=== PATIENT | female | born 1935 | race African-American/Black ===

== ENCOUNTER 2018-04-18 18:35 | Inpatient (IN) | payer MEDICARE ==
[~2018-04-18] VITALS: Ht 170.2 cm; Wt 81.6 kg
--- NOTE | ~2018-04-18 | CN ---
PATIENT NAME:BHAVESH TAPIA MEDICAL RECORD: [id number] : 35 LOCATION:D. D.2107 ADMIT DATE: 04/19/18 ACCOUNT: [id number] CONSULTING PHYSICIAN: JOSE SARAVIA MD REFERRING PHYSICIAN: BELTRAN GARCIA MD DATE OF CONSULTATION: 04/22/2018 ADMITTING DIAGNOSES: 1. Pulmonary embolus. 2. Hypertension. 3. Pulmonary hypertension. 4. Alzheimer's dementia. 5. Peripheral vascular disease. 6. Diabetes. 7. Systemic hypertension. 8. Shortness of breath, dyspnea on exertion. HISTORY OF PRESENT ILLNESS: Mrs. Tapia is an 82-year-old senior care patient who was sent here for shortness of breath, dyspnea on exertion. She had a CAT scan that suggested a pulmonary embolus along with a right atrial thrombus. She has since had an echocardiogram. The echocardiogram was with excellent images as she is quite thin. There is no evidence of right atrial thrombus at the time of the echocardiogram, which was yesterday. She did have what appeared to be right heart enlargement, right heart strain, and pulmonary hypertension with systolic blood pressures in the 60 range pulmonary salvador. PHYSICAL EXAMINATION: GENERAL APPEARANCE: Well-nourished, well-developed, appears stated age. Level of distress, comfortable. PSYCHIATRIC: Mental status, alert, normal affect. Orientation, oriented to time, place and person. EYES: Lids and conjunctiva, noninjected. No discharge, no pallor. ENT: Lips, teeth, gums, normal dentition. Oropharynx, no cyanosis, no pallor. NECK: Carotid arteries, bilateral normal upstroke, no bruits, no thrills. JUGULAR VEINS: No jugular venous pressure or distention. CERVICAL LYMPH NODES: Nontender, nonenlarged. THYROID: Not enlarged. Nontender. No nodules. LUNGS: Respiratory effort, unlabored. CHEST: Normal curvature. No thoracic deformity. No chest wall tenderness. Percussion, resonant. Auscultation, clear. No wheezes, no rales, no rhonchi. CARDIOVASCULAR: Precordial exam, nondisplaced. No heaves or pericardial thrills. Rate and rhythm, regular. Heart sounds, normal S1, normal S2. No S3, no gallop, no rub. Systolic murmur, not heard. Diastolic murmur, not heard. EXTREMITIES: No cyanosis, no edema. Peripheral pulses, full and equal in all extremities, except as noted. No bruits appreciated. ABDOMEN: Soft, nondistended. Normal aorta. No bruit. Nontender. No masses. Liver, nontender, no hepatomegaly. Spleen, nontender, no splenomegaly. MUSCULOSKELETAL: No joint tenderness. No joint swelling. No erythema. NEUROLOGICAL: Normal gait, normal strength, normal tone. SKIN: Warm and dry. OVERALL IMPRESSION: Right atrial thrombus on CT scan. However, yesterday, echocardiogram showed no further right atrial thrombus. If it was a right atrial thrombus present and this was not artifactual, it has since gone on to become a pulmonary embolus. It would not change the therapy at this time and CONSULT REPORT [id number] BHAVESH TAPIA she is being anticoagulated for this. At this time, no other cardiac workup is necessary. TRANSINT:[id number] Voice Confirmation ID: [id number] DOCUMENT ID: [id number] JOSE SARAVIA MD at 0923 CC: [id number] DICTATION DATE: 04/22/18 1033 SOFTWARE TOOLS DEVELOPER: 04/22/18 1149 DIS IN 04/25/18 [facility] [address] [place] [address]
--- NOTE | ~2018-04-18 | EC ---
PATIENT:BHAVESH HANNAH DATE OF SERVICE: 04/19/18 SEX: F MEDICAL RECORD: [id number] DATE OF : 35 LOCATION:D.M2 D.210 AGE OF PATIENT: 82 ADMISSION DATE: 04/19/18 REFERRING PHYSICIAN: INTERPRETING PHYSICIAN: ARMAAN FOY MD ECHOCARDIOGRAM REPORT ECHO CHARGES 4 ECHO COMPLETE Date: 04/20/18 CLINICAL DIAGNOSIS: CHF ECHOCARDIOGRAPHIC MEASUREMENTS (adult normal given) AC root (d.<3.7cm) 3.0 cm LV Septum d (<1.2 cm> 1.9 cm Valve Excursion 1.2 cm LV Septum (systole) 1.9 cm Left Atria (s.<4.0cm> 3.6 cm LVPW d(<1.2cm) 0.7 cm RV (d.<2.3cm) 3.3 cm LVPW (sytole) 0.7 cm LV diastole(<5.6CM) 4.5 cm MV E-F(>70mm/sec) cm LV systole 3.3 cm LVOT Diameter 2.0 cm MV exc.(>10mm) cm Est.ejection fraction (50-75%) % DOPPLER: LVIT cm/sec A 65 cm/sec E 48 cm/sec LA cm/sec RVSP 54.9 mmHg LVOT 219 cm/sec AOP1/2T m/s Asc. Ao 259 cm/sec RVOT 66 cm/sec RA cm/sec PA 76 cm/sec AV Gradient Peak 28.9 mmHg AV Mean 17.3 mmHg AV Area 0.6 cm MV Gradient Peak 2.0 mmHg MV Mean 1.0 mmHg MV Area cm COMMENTS: Manager Of Clinical: Juan Francisco PYLE Husbandry Person: 4 Dr. Foy TAPE# PACS Pericardial Effusion N DATE OF SERVICE: PROCEDURE: The patient underwent a transthoracic echocardiogram. FINDINGS: The left ventricle shows moderate concentric left ventricular hypertrophy with inflow characteristics consistent with diastolic dysfunction. There appears to be mild global hypokinesis with difficulty getting exact ejection fraction because of considerable dyssynchrony because of his bundle-branch block. The right ventricle is dilated and hypokinetic. The patient's pulmonary pressures are moderately elevated at 60 mmHg, indicating ECHOCARDIOGRAM REPORT [id number] BHAVESH HANNAH moderate pulmonary hypertension. She has moderate tricuspid regurgitation. The overall ejection fraction appears to be 35% to 40%. There is a suggestion again of possible anterior hypokinesis, but with the asynchrony due to bundle-branch block, it is difficult to gauge. The mitral valve appears to be overall normal. CONCLUSION: The patient has evidence of hypertensive heart disease, dilated right ventricle with pulmonary hypertension, and also evidence of left ventricular hypertrophy with global hypokinesis and ejection fraction in 35% to 40% range. TRANSINT:[id number] Voice Confirmation ID: [id number] DOCUMENT ID: [id number] ARMAAN FOY MD at 1348 CC: [id number] DICTATION DATE: 04/21/18 1155 BASKET OPERATOR: 04/21/18 1818 ADM IN [place] [id number] [place] [address]
[2018-04-19 04:00] VITALS: BP 156/63
[2018-04-19 05:48] VITALS: BP 156/63; BMI 28.2
[2018-04-19 08:04] VITALS: BP 197/55
[2018-04-19] MEDS ORDERED: DONEPEZIL HCL10 M1 PO (10:55)
[2018-04-19] MEDS ORDERED: NORVASC10 MG PO (10:55)
[2018-04-19] MEDS ORDERED: BAYER CHEWABLE81 MG PO (10:56)
[2018-04-19] MEDS ORDERED: CELEXA20 MG PO (10:57)
[2018-04-19] MEDS ORDERED: BACLOFEN20 M1 PO (10:57)
[2018-04-19 10:58] VITALS: BP 138/51
[2018-04-19] MEDS ORDERED: TIAZAC/CARDIZE120 MG PO (10:58)
[2018-04-19] MEDS ORDERED: NEURONTIN 400400 MG PO (10:59)
[2018-04-19] MEDS ORDERED: HUMULIN R100 U/ML SC (11:00)
[2018-04-19] MEDS ORDERED: NORCO 10-325 TA1 TAB PO (11:01)
[2018-04-19] MEDS ORDERED: ATIVAN1 MG PO (11:02)
[2018-04-19] MEDS ORDERED: METOPROLOL TART25 MG PO (11:03)
[2018-04-19] MEDS ORDERED: MILK OF MAGNESI30 ML PO (11:04)
[2018-04-19 12:23] VITALS: BMI 28.2
[2018-04-19 13:50] LABS: APPEARANCE HAZY (CLEAR); COLOR YELLOW (YELLOW); GLUCOSE NEGATIVE (NEGATIVE); KETONE NEGATIVE (NEGATIVE); NITRITE NEGATIVE (NEGATIVE); PROTEIN 1+ mg/dL (NEGATIVE)
[2018-04-19 13:51] LABS: BILIRUBIN NEGATIVE (NEGATIVE); UROBILINOGEN NORMAL (NORMAL)
[2018-04-19 13:52] LABS: AMORPHOUS SEDIMENT <1+ /lpf (NONE SEEN); BACTERIA MODERATE /hpf (NONE SEEN); EPITHELIAL CELLS OCC /hpf (0-5); MUCUS <1+ /lpf (NONE SEEN); RED CELLS - URINE >50 /hpf (0-5); WHITE CELLS - URINE >50 /hpf (0-5)
[2018-04-19 14:41] VITALS: Ht 170.2 cm; Wt 81.6 kg
[2018-04-19 15:13] LABS: APTT 40.8 SECONDS (22.8-39.4); BASOPHILS 0.1 % (0-2); EOSINOPHILS 0.1 % (0-7); HEMATOCRIT 39.5 % (36.0-48.0); HEMOGLOBIN 12.2 g/dL (12-16); IMMATURE GRANULOCYTES 0.1 % (0-5); INR 1.29 (0.85-1.17); LYMPHOCYTES 9.7 % (15-50); MCH 24.2 pg (26.0-34.0); MCHC 30.9 g/dL (31.0-37.0); MCV 78.2 fL (80.0-100.0); MONOCYTES 8.2 % (2-11); NEUTROPHILS 81.8 % (40-80); PLATELET COUNT 208 10x3/uL (130-400); PROTIME 15.7 SECONDS (11.6-15.0); RBC 5.05 10x6/uL (4.00-5.40); RDW 15.5 % (11.5-14.5); WBC 7.3 10x3/uL (4.8-10.8)
[2018-04-19 15:24] VITALS: BP 137/68
[2018-04-19 15:26] LABS: ALBUMIN 2.3 g/dL (3.4-5.0); ANION GAP 13.8 mmol/L (8-16); BILIRUBIN - TOTAL 1.21 mg/dL (0.2-1.3); CALCIUM 9.5 mg/dL (8.5-10.1); CARBON DIOXIDE 25.2 mmol/L (21.0-32.0); CREATININE - SERUM 0.8 mg/dL (0.6-1.3); MAGNESIUM - SERUM 1.6 mg/dL (1.8-2.4); PROTEIN - SERUM 6.7 g/dL (6.4-8.2)
[2018-04-19 21:04] VITALS: BP 110/58
[2018-04-20 05:48] VITALS: BP 129/49
[2018-04-20 11:37] LABS: BASOPHILS 0.1 % (0-2); EOSINOPHILS 0 % (0-7); HEMATOCRIT 38.5 % (36.0-48.0); HEMOGLOBIN 11.6 g/dL (12-16); IMMATURE GRANULOCYTES 0.5 % (0-5); LYMPHOCYTES 5.6 % (15-50); MCH 23.9 pg (26.0-34.0); MCHC 30.1 g/dL (31.0-37.0); MCV 79.4 fL (80.0-100.0); MEAN PLATELET VOLUME 11.5 fL (7.4-10.4); MONOCYTES 11.6 % (2-11); NEUTROPHILS 82.2 % (40-80); PLATELET COUNT 191 10x3/uL (130-400); RBC 4.85 10x6/uL (4.00-5.40); RDW 15.7 % (11.5-14.5)
[2018-04-20 11:50] LABS: ANION GAP 17.4 mmol/L (8-16); CALCIUM 9.4 mg/dL (8.5-10.1); CARBON DIOXIDE 22.1 mmol/L (21.0-32.0); MAGNESIUM - SERUM 1.7 mg/dL (1.8-2.4); POTASSIUM - SERUM 4.5 mmol/L (3.5-5.1)
[2018-04-20 11:52] LABS: CREATININE - SERUM 1.6 mg/dL (0.6-1.3)
[2018-04-20 20:29] VITALS: BP 102/53
[2018-04-21 05:16] VITALS: BP 98/48
[2018-04-21 05:29] LABS: BASOPHILS 0.1 % (0-2); EOSINOPHILS 0.1 % (0-7); HEMATOCRIT 38.9 % (36.0-48.0); HEMOGLOBIN 11.9 g/dL (12-16); IMMATURE GRANULOCYTES 0.3 % (0-5); LYMPHOCYTES 7.2 % (15-50); MCH 24.2 pg (26.0-34.0); MCHC 30.6 g/dL (31.0-37.0); MCV 79.1 fL (80.0-100.0); MEAN PLATELET VOLUME 10.9 fL (7.4-10.4); MONOCYTES 14.6 % (2-11); NEUTROPHILS 77.7 % (40-80); PLATELET COUNT 165 10x3/uL (130-400); RBC 4.92 10x6/uL (4.00-5.40); RDW 15.8 % (11.5-14.5)
[2018-04-21 05:38] LABS: WBC 11.5 10x3/uL (4.8-10.8)
[2018-04-21 05:47] LABS: ANION GAP 18.6 mmol/L (8-16); CALCIUM 9.3 mg/dL (8.5-10.1); CARBON DIOXIDE 21.1 mmol/L (21.0-32.0); CREATININE - SERUM 2.3 mg/dL (0.6-1.3); POTASSIUM - SERUM 4.7 mmol/L (3.5-5.1)
[2018-04-21 08:23] VITALS: BP 124/94
[2018-04-21 11:43] VITALS: BP 111/45
[2018-04-21 15:21] VITALS: BP 96/41
[2018-04-21 20:00] VITALS: BP 99/47
[2018-04-22 00:56] VITALS: BP 91/40
[2018-04-22 04:00] VITALS: BP 105/50
[2018-04-22 06:19] LABS: BASOPHILS 0.1 % (0-2); EOSINOPHILS 0.5 % (0-7); HEMATOCRIT 39.4 % (36.0-48.0); HEMOGLOBIN 12.2 g/dL (12-16); IMMATURE GRANULOCYTES 0.3 % (0-5); MCH 24.2 pg (26.0-34.0); MCV 78.2 fL (80.0-100.0); MEAN PLATELET VOLUME 11.1 fL (7.4-10.4); MONOCYTES 11.7 % (2-11); NEUTROPHILS 77.4 % (40-80); PLATELET COUNT 164 10x3/uL (130-400); RBC 5.04 10x6/uL (4.00-5.40); RDW 16.1 % (11.5-14.5); WBC 9.1 10x3/uL (4.8-10.8)
[2018-04-22 06:44] LABS: ANION GAP 15.6 mmol/L (8-16); CALCIUM 9.4 mg/dL (8.5-10.1); CARBON DIOXIDE 25.3 mmol/L (21.0-32.0); POTASSIUM - SERUM 4.9 mmol/L (3.5-5.1); VANCOMYCIN - RANDOM 31.5 ug/mL (10.0-20.0)
[2018-04-22 06:46] LABS: CREATININE - SERUM 3.1 mg/dL (0.6-1.3)
[2018-04-22 07:42] LABS: APTT 39.1 SECONDS (22.8-39.4); INR 1.42 (0.85-1.17); PROTIME 16.9 SECONDS (11.6-15.0)
[2018-04-22 08:38] VITALS: BP 114/64
[2018-04-22 12:15] VITALS: BP 97/47
[2018-04-22 15:59] VITALS: BP 89/55
[2018-04-22 22:06] VITALS: BP 130/60
[2018-04-23 00:47] VITALS: BP 118/67
[2018-04-23 05:23] VITALS: BP 118/59
[2018-04-23 05:43] LABS: BASOPHILS 0.1 % (0-2); HEMATOCRIT 36.8 % (36.0-48.0); HEMOGLOBIN 11.4 g/dL (12-16); IMMATURE GRANULOCYTES 0.4 % (0-5); LYMPHOCYTES 11.5 % (15-50); MCH 24.2 pg (26.0-34.0); MEAN PLATELET VOLUME 11.4 fL (7.4-10.4); MONOCYTES 9.3 % (2-11); NEUTROPHILS 77.7 % (40-80); PLATELET COUNT 180 10x3/uL (130-400); RBC 4.72 10x6/uL (4.00-5.40); RDW 15.9 % (11.5-14.5); WBC 9.8 10x3/uL (4.8-10.8)
[2018-04-23 06:01] LABS: APTT 42.8 SECONDS (22.8-39.4); INR 1.41 (0.85-1.17); PROTIME 16.8 SECONDS (11.6-15.0)
[2018-04-23 06:04] LABS: ANION GAP 16.5 mmol/L (8-16); CALCIUM 9.2 mg/dL (8.5-10.1); CARBON DIOXIDE 24.6 mmol/L (21.0-32.0); CREATININE - SERUM 3.7 mg/dL (0.6-1.3); MAGNESIUM - SERUM 2.2 mg/dL (1.8-2.4); POTASSIUM - SERUM 5.1 mmol/L (3.5-5.1); VANCOMYCIN - RANDOM 29.5 ug/mL (10.0-20.0)
[2018-04-23 08:30] VITALS: BP 102/48
[2018-04-23 11:30] VITALS: BP 106/67
[2018-04-23 15:00] VITALS: BP 111/67
[2018-04-23 22:50] VITALS: BP 130/62
[2018-04-24 01:58] VITALS: BP 135/67
[2018-04-24 05:09] LABS: BASOPHILS 0 % (0-2); EOSINOPHILS 0.2 % (0-7); HEMATOCRIT 37.3 % (36.0-48.0); HEMOGLOBIN 11.4 g/dL (12-16); IMMATURE GRANULOCYTES 0.4 % (0-5); LYMPHOCYTES 7.7 % (15-50); MCH 23.8 pg (26.0-34.0); MCHC 30.6 g/dL (31.0-37.0); MCV 77.9 fL (80.0-100.0); MEAN PLATELET VOLUME 11.3 fL (7.4-10.4); MONOCYTES 9.7 % (2-11); PLATELET COUNT 164 10x3/uL (130-400); RBC 4.79 10x6/uL (4.00-5.40); WBC 10.3 10x3/uL (4.8-10.8)
[2018-04-24 05:33] LABS: ANION GAP 19.2 mmol/L (8-16); CALCIUM 9.5 mg/dL (8.5-10.1); CREATININE - SERUM 4.1 mg/dL (0.6-1.3); MAGNESIUM - SERUM 2.3 mg/dL (1.8-2.4); POTASSIUM - SERUM 5.2 mmol/L (3.5-5.1); VANCOMYCIN - RANDOM 24.9 ug/mL (10.0-20.0)
[2018-04-24 06:15] VITALS: BP 128/57
[2018-04-24 07:56] VITALS: BP 119/47
[2018-04-24 10:44] VITALS: BP 121/73
[2018-04-24 14:17] VITALS: BP 123/52
[2018-04-24 20:00] VITALS: BP 134/64
[2018-04-25] VITALS: BP 128/57
== END 2018-04-25 07:20 | DRG 177 ==
LOC: D.M2 18:35
PROVIDERS: General Practice; Internal Medicine Nephrology
PROC: 5A09457 Assistance with Respiratory Ventilation, 24-96 Consecutive Hours, Continuous Positive Airway Pressure (ICD-10-PCS; principal; 2018-04-22)
DX: J15.6 Pneumonia due to other Gram-negative bacteria (principal); J96.90 Respiratory failure, unspecified, unspecified whether with hypoxia or hypercapnia; R53.2 Functional quadriplegia; J44.0 Chronic obstructive pulmonary disease with (acute) lower respiratory infection; N39.0 Urinary tract infection, site not specified; F02.81 Dementia in other diseases classified elsewhere, unspecified severity, with behavioral disturbance; N17.9 Acute kidney failure, unspecified; I11.0 Hypertensive heart disease with heart failure; Z66 Do not resuscitate; J15.212 Pneumonia due to Methicillin resistant Staphylococcus aureus; I50.9 Heart failure, unspecified; B96.20 Unspecified Escherichia coli [E. coli] as the cause of diseases classified elsewhere; E11.40 Type 2 diabetes mellitus with diabetic neuropathy, unspecified; E11.51 Type 2 diabetes mellitus with diabetic peripheral angiopathy without gangrene; G30.9 Alzheimer's disease, unspecified; F41.9 Anxiety disorder, unspecified; M48.061 Spinal stenosis, lumbar region without neurogenic claudication; L89.159 Pressure ulcer of sacral region, unspecified stage; I51.3 Intracardiac thrombosis, not elsewhere classified